=== PATIENT | female | born 1975 | race Asian ===

== ENCOUNTER 2016-12-05 16:36 | Emergency (ER) | payer OTHER ==
--- NOTE | 2016-12-05 17:14 | EDPHY ---
H & P Stated Complaint: Sharp CP radiating to right arm HPI/ROS: CHIEF COMPLAINT: Right chest pain HISTORY OF PRESENT ILLNESS: The patient is a 41 y/o female arriving with her [id number] complaining of sharp severe right chest pain radiating into her right arm onset about 1.5 day ago. While grocery shopping on Sunday, 3 days ago, she developed severe left calf pain so bad it made her drop to her knees. It improved after a few minutes, but she then developed the same pain in her right calf. After 30 minutes or so she went home and felt normal for the rest of the day. On Sunday, her legs were so sore it felt "like I ran a marathon." While at work yesterday, she felt a "scratch" on her right chest that was tender to the touch. Her chest pain has been progressively worsening throughout the day. Her PCP recommended coming into the ED for evaluation for possible blood clot. Her pain is aggravated by any movement and breathing. She has not taken anything for pain. Her calves feel normal now--no swelling or pain. Denies chance of . She is a pack per day smoker and has a history of a hiatal hernia. REVIEW OF SYSTEMS: A ten point review of systems was performed and is negative with the exception of the items mentioned in the HPI. Past medical history: Hiatal hernia - Prilosec Past surgical history: Denies Family history: Denies cardiac disease history Social history: Pack/day smoker. No alcohol use. [id number] at bedside. General Appearance: Alert. Appears very uncomfortable, catching her breath as she speaks and holding onto her upper right chest.. Vital signs reviewed. Eyes: Pupils equal and round, no conjunctival injection, no discharge. Anicteric. ENT, Mouth: Mucous membranes are moist, no oropharyngeal erythema or edema. Neck: No lymphadenopathy, supple. Respiratory: Lungs are clear to auscultation; no wheezes, rales, or rhonchi. Thorax: Slightly tender to palpation of the right upper thorax, above her breast. No crepitus. No swelling. No skin a so rash. No skin warmth. Cardiovascular: Regular rate and rhythm; no murmur, rub, or gallop. Gastrointestinal: Abdomen is soft and nontender, no masses or organomegaly, bowel sounds normal. Skin: Warm and dry, no rashes on exposed skin, normal color. Tender over right side of sternum. Back: Nontender to palpation over the thoracolumbar spine. No CVAT. Extremities: No lower extremity edema, no calf tenderness or swelling. Neurological: Alert and oriented. Moving all four extremities easily and equally. Psychiatric: Normal affect. - Personal History Current Tetanus Diphtheria and Acellular Pertussis (TDAP): Yes - Medical/Surgical History Hx Asthma: No Hx Chronic Respiratory Disease: No Hx Diabetes: No Hx Cardiac Disease: No Hx Renal Disease: No Hx Cirrhosis: No Hx Alcoholism: No Hx HIV/AIDS: No Hx Splenectomy or Spleen Trauma: No Other PMH: Hiatal Hernia - Social History Smoking Status: Current every day smoker Constitutional: Initial Vital Signs Temperature (C) 36.8 C 12/05/16 16:39 Heart Rate 84 12/05/16 16:39 Respiratory Rate 18 12/05/16 16:39 Blood Pressure 127/88 H 12/05/16 16:39 O2 Sat (%) 100 12/05/16 16:39 O2 Delivery Mode Room Air O2 (L/minute) 2 Allergies/Adverse Reactions: No Known Allergies Allergy (Unverified 01/28/12 10:59) Home Medications: Medication Instructions Recorded Diazepam [Valium] 5 mg PO TIDPRN PRN #10 tab 01/28/12 Prilosec 01/28/12 Hydrocodone/APAP 5/325 [Saunemin 1 - 2 tab PO Q4 PRN #10 tab 12/05/16 5/325 (RX)] Medical Decision Making - Diagnostics Imaging: I viewed and interpreted images myself ED Course/Re-evaluation: This is a 41 y/o female who is a heavy cigarette smoker and presents with severe , sharp right-sided chest pain that is tender to the touch. No visible rash or lesion on skin. Her vitals are within normal limits. She did have preceding calf pain that has since resolved. Plan for IV, labs, EKG, and chest x-ray. Patient declined narcotic pain medication. 15mg IV Toradol administered for pain. The 12 lead EKG was interpreted by myself. Sinus mechanism rate 79. See hard copy and/or "tracemaster" electronic copy for interpretation. Chest x-ray: negative Reassessed patient. She continues to have severe pain. 75mcg IV Fentanyl administered. 1944: Patient was re-examined. She is more comfortable after receiving the fentanyl. The pain is not gone but is tolerable now. 2011: Reassessed patient and discussed recommendation for chest CT due to disproportionate pain. She agrees to imaging. CT angiogram reported to me is negative for any signs of pulmonary embolus. She continues to be without any leg symptoms at this point in time. The etiology of her pain remains unclear. She is much more comfortable after having received opiate pain medication. I have not found a life-threatening or serious cause for her pain, which did seem out of proportion to the physical findings. She has no skin changes and no evidence of infection. She does not have an elevated white blood cell count. I do not think that this is necrotizing fasciitis and no abnormal gas was seen in the chest wall on CT angiogram. She is being discharged home with some Vicodin to use for pain relief and recommendations for follow-up with primary care. We reviewed the danger signs that should prompt her to return immediately for re-evaluation. Differential Diagnosis: Chest pain including but not limited to myocardial ischemia, pulmonary embolus, shingles, chest wall pain, pleural inflammation, pulmonary infectious causes and other infection such as cellulitis, abscess, and necrotizing fasciitis. - Data Points Laboratory Results: Laboratory Results 12/05/16 17:20 12/05/16 17:20 Medications Given: Discontinued Medications Hydrocodone Bitart/Acetaminophen (Saunemin 5/325mg Prepack#6) 1 btl TAKEHOME EDNOW ONE Stop: 12/05/16 22:32 Last Admin: 12/05/16 22:56 Dose: 1 btl Fentanyl (Sublimaze) 75 mcg IVP EDNOW ONE Stop: 12/05/16 19:03 Last Admin: 12/05/16 19:13 Dose: 75 mcg Fentanyl (Sublimaze) 50 mcg IVP EDNOW ONE Stop: 12/05/16 21:10 Last Admin: 12/05/16 21:34 Dose: Not Given Hydromorphone HCl (Dilaudid) 0.5 mg IVP EDNOW ONE Stop: 12/05/16 21:27 Last Admin: 12/05/16 21:28 Dose: 0.5 mg Ketorolac Tromethamine (Toradol) 15 mg IVP EDNOW ONE Stop: 12/05/16 17:39 Last Admin: 12/05/16 17:46 Dose: 15 mg Departure - Departure Disposition: Home, Routine, Self-Care Clinical Impression: Chest pain Qualifiers: Chest pain type: chest pain on breathing Qualified Code(s): R07.1 - Chest pain on breathing; R07.81 - Pleurodynia Condition: Good Instructions: Hydrocodone/Acetaminophen (By mouth), Noncardiac Chest Pain (ED) , Chest Wall Pain (ED) Additional Instructions: We have not found evidence of a dangerous problem such as a blood clot in your lungs, a collapsed lung, or an infection. It is not clear what is causing your pain. Adult Pain & Fever Control: We recommend Acetaminophen (Tylenol) and Ibuprofen (Motrin,Advil) for pain and fever control. When fever is high or pain severe, both drugs can be used at the same time, but at different intervals. Please note the time differences. Your dose is: Acetaminophen [650]mg every 4 to 6 hours Ibuprofen []mg every [] hours with food OR Naproxen Sodium (Aleve) []mg every 12 hours. Note: do not take Acetaminophen with Hydrocodone (Vicodin, Lortab) or Oycodone (Percocet). These medications also contain Acetaminophen. No more than 3000mg of Acetaminophen should be taken in 24 hours (for an adult). Take ibuprofen regularly, as above, for the next couple of days. Use the vicodin if needed for more severe pain. Follow up with your primary care provider if you are not getting better, return if you are worse in any way--fever, trouble breathing, worsening pain. Referrals: Aida Gomez PA [Primary Care Provider] - As per Instructions Prescriptions: Hydrocodone/APAP 5/325 [Saunemin 5/325 (RX)] 1 - 2 tab PO Q4 PRN #10 tab PRN Reason: pain Report Scribed for: Anisa Haines Report Scribed by: Heaven Saucedo Date of Report: 12/05/16 Time of Report: 17:39 Physician Review and Approval Statement: 12/05/16 17:14 Portions of this note were transcribed by the biomedical engineering supervisor. I, Dr. Anisa Haines, personally performed the history, physical exam, and medical decision- making; and confirmed the accuracy of the information in the transcribed note.
--- NOTE | 2016-12-05 17:22 | CPEKG ---
Heart Rate: 79 RR Interval: 759 P-R Interval: 160 QRSD Interval: 76 QT Interval: 368 QTC Interval: 422 P [place]: 85 QRS [place]: 82 T Wave [place]: 65 EKG Severity - NORMAL ECG - EKG Impression: SINUS RHYTHM Electronically Signed By: Rafa Long 08-Dec-2016 11:58:40
[2016-12-05 17:32] LABS: % IMMATURE GRANULYOCYTES 0.1 % (0.0-1.1); ABSOLUTE IMMATURE GRANULOCYTES 0.01 10^3/uL (0.00-0.10); ADD DIFF? NO; ADD MORPH? NO; ADD SCAN? NO; ATYPICAL LYMPHOCYTE FLAG 40 (0-99); FRAGMENT RBC FLAG 0 (0-99); HEMATOCRIT 42.4 % (38.0-47.0); HEMOGLOBIN 14.9 g/dL (12.6-16.3); LEFT SHIFT FLG 0 (0-99); LIPEMIA HEMOLYSIS FLAG 90 (0-99); MEAN CELL HEMOGLOBIN 32.8 pg (27.9-34.1); MEAN CELL HEMOGLOBIN CONCENTR. 35.1 g/dL (32.4-36.7); MEAN CELL VOLUME 93.4 fL (81.5-99.8); MEAN PLATELET VOLUME 10.1 fL (8.7-11.7); PLATELET CLUMPS FLAG 0 (0-99); PLATELET COUNT 183 10^3/uL (150-400); RED BLOOD CELL COUNT 4.54 10^6/uL (4.18-5.33); RED CELL DISTRIBUTION WIDTH 12.9 % (11.5-15.2)
[2016-12-05] MEDS ORDERED: KETOROLAC 15 MG/1 ML SDV IVP ONE (17:38)
[2016-12-05 17:48] LABS: ALANINE AMINOTRANSFERASE 36 IU/L (9-52); ALBUMIN 4.6 g/dL (3.5-5.0); ALKALINE PHOSPHATASE 52 IU/L (38-126); ANION GAP 11 mEq/L (8-16); ASPARTATE AMINOTRANSFERASE 36 IU/L (14-46); BILIRUBIN,TOTAL 0.4 mg/dL (0.1-1.4); CALCIUM 9.9 mg/dL (8.5-10.4); CARBON DIOXIDE 23 mEq/l (22-31); CHLORIDE 103 mEq/L (97-110); CREATININE 0.9 mg/dL (0.6-1.0); GLOMERULAR FILTRATION RATE > 60; GLUCOSE 89 mg/dL (70-100); POTASSIUM 3.9 mEq/L (3.5-5.2); SODIUM 137 mEq/L (134-144); TOTAL PROTEIN 8.5 g/dL (6.3-8.2)
[2016-12-05 18:00] LABS: TROPONIN I < 0.012 ng/mL (0.000-0.034)
[2016-12-05] MEDS ORDERED: fentaNYL 100 MCG/2 ML INJ IVP ONE ×2 (19:02→21:09)
[2016-12-05 19:57] VITALS: RESP 18
[2016-12-05] MEDS ORDERED: IOPAMIDOL (ISOVUE 370) 100 ML BTL IV ONE (20:16)
[2016-12-05] MEDS ORDERED: HYDROmorphONE/DILAUDID 1 MG/ML INJ IVP ONE (21:26)
[2016-12-05] MEDS ORDERED: HYDROCOD/APAP 5/325 PREPACK#6 BTL TAKEHOME ONE (22:31)
[2016-12-05 23:09] VITALS: TEMP 97.9
[2016-12-05 23:11] VITALS: O2SAT 96
[2016-12-05 23:12] VITALS: BP 115/75; PULSE 63
== END 2016-12-05 23:13 | disposition home or self-care (01) ==
DX: R07.1 Chest pain on breathing (principal); R07.81 Pleurodynia; F17.200 Nicotine dependence, unspecified, uncomplicated
CPT/HCPCS: 96374; J1170; J1885; J3010; Q9967